=== PATIENT | female | born 1995 | race Caucasian/White ===

== ENCOUNTER 2016-09-05 00:53 | Emergency (ER) | payer BC ==
[~2016-09-05] VITALS: Ht 154.9 cm; Wt 63.5 kg
[~2016-09-05 00:53] MED LIST: AMOX500C2 PO
[2016-09-05 02:00] VITALS: BP_SYST 132
--- NOTE | 2016-09-05 02:58 | NUR ---
Patient to ER bed 5 to gown for evaluation. Side rails up. Report given to WEI Garcia
--- NOTE | 2016-09-05 03:00 | NUR ---
Patient arrived to ED with c/o QUEEN x 3 days. Patient a/o x 4. Reports tension QUEEN localized to right side of skull. Patient denies N/V. Denies trauma. Reports Hx of migraines. Patient took ibuprofen at home for pain. Boyfriend at bedside. Will continue to monitor.
--- NOTE | 2016-09-05 03:10 | NUR ---
ED MD Santana at bedside for medical evaluation.
[2016-09-05 03:30] VITALS: BP_SYST 129
--- NOTE | 2016-09-05 03:30 | NUR ---
Patient given written and verbal discharge instructions and verbalizes understanding. ER MD discussed with patient the results and treatment provided. Patient in stable condition. ID arm band removed. Rx of Fioricet given. Patient educated on pain management and to follow up with PMD. Pain Scale 2/10 tolerable for patient. Opportunity for questions provided and answered.
== END 2016-09-05 03:30 | disposition home or self-care (01) ==
LOC: SED 00:53
DX: R51 Headache (principal); Z88.1 Allergy status to other antibiotic agents
CPT/HCPCS: 99283

== ENCOUNTER 2017-03-18 22:44 | Emergency (ER) | payer BC ==
[~2017-03-18] VITALS: Ht 154.9 cm; Wt 65.8 kg
[2017-03-18 23:02] VITALS: BP_SYST 134
--- NOTE | 2017-03-18 23:25 | NUR ---
ER MD Adames at bedside for medical evaluation.
--- NOTE | 2017-03-18 23:25 | NUR ---
Patient to ER bed 6 to gown for evaluation. Side rails up.
[2017-03-18] MEDS ORDERED: PROCHLORPERAZINE EDISYLATE 10 MG/2 ML VIAL IVP ONE (23:30)
[2017-03-18] MEDS ORDERED: DIPHENHYDRAMINE INJ 50 MG/ML VIAL IVP ONE (23:30)
--- NOTE | 2017-03-18 23:30 | NUR ---
Patient AOx4, ambulatory, presents to ER with complaint of migraine headache 11/19. Patient states the migraine was worse today than other times. Mother states that the patient does not take any prescribed medication for migraine. Will continue to monitor.
--- NOTE | 2017-03-18 23:40 | NUR ---
# 22 gauge angiocath placed to LAC. Use of asceptic technique. Opsite placed over site. Blood return noted. Flushed with 10 cc of normal saline. No evidence of infiltration noted. Patient tolerated well.
--- NOTE | 2017-03-18 23:58 | NUR ---
Dr. Adames gave verbal order for Ativan 1mg.
--- NOTE | 2017-03-19 00:01 | NUR ---
Lorezapam not administered. Patient's mother refused medication.
[2017-03-19] MEDS ORDERED: LORazepam 2 MG/ML VIAL (FOR ER USE) ONE (00:02)
[2017-03-19 01:22] VITALS: BP_SYST 128
--- NOTE | 2017-03-19 01:22 | NUR ---
Patient given written and verbal discharge instructions and verbalizes understanding. ER MD discussed with patient the results and treatment provided. Patient in stable condition. ID arm band removed. IV catheter removed intact and dressing applied, no active bleeding. Rx of Tylenol given. Patient educated on pain management and to follow up with PMD. Pain Scale 0/10. Opportunity for questions provided and answered.
== END 2017-03-19 01:22 | disposition home or self-care (01) ==
LOC: SED 22:44
DX: G43.909 Migraine, unspecified, not intractable, without status migrainosus (principal)
CPT/HCPCS: 96374; 96375; 99284; J0780; J1200; J2060

== ENCOUNTER 2018-09-03 03:20 | Emergency (ER) | payer BC, MEDICAID ==
[~2018-09-03] VITALS: Ht 154.9 cm; Wt 63.5 kg
[2018-09-03 03:40] VITALS: BP_SYST 140
--- NOTE | 2018-09-03 03:40 | NUR ---
Patient to ER bed 7 to gown for evaluation. Side rails up.
--- NOTE | 2018-09-03 04:30 | NUR ---
Patient left without being seen.
== END 2018-09-03 04:30 | disposition left against medical advice (07) ==
LOC: SED 03:20
DX: G43.909 Migraine, unspecified, not intractable, without status migrainosus (principal); Z53.21 Procedure and treatment not carried out due to patient leaving prior to being seen by health care provider

== ENCOUNTER 2022-06-10 12:17 | Emergency (ER) | payer BC, MEDICAID ==
[~2022-06-10] VITALS: Ht 154.9 cm; Wt 65.8 kg
[2022-06-10 12:20] VITALS: BP_SYST 143
[2022-06-10 13:04] LABS: BASOPHILS % (AUTO) 0.7 % (0.0-2.0); EOSINOPHILS # (AUTO) 0.4 K/uL (0.0-0.4); EOSINOPHILS % (AUTO) 5.3 % (0.0-4.0); HEMATOCRIT 39.4 % (36-48); HEMOGLOBIN 13.2 g/dL (12.0-16.0); LYMPHOCYTES # (AUTO) 1.9 K/uL (1.0-5.5); LYMPHOCYTES % (AUTO) 28.6 % (20.5-51.5); MEAN CORPUSCULAR HEMOGLOBIN 29 pg (27-31); MEAN CORPUSCULAR HGB CONC 34 % (32-36); MEAN CORPUSCULAR VOLUME 86 fL (79.0-98.0); MONOCYTES # (AUTO) 0.4 K/uL (0.0-1.0); MONOCYTES % (AUTO) 6.6 % (1.7-9.3); NEUTROPHILS # (AUTO) 3.9 K/uL (1.8-7.7); NEUTROPHILS % (AUTO) 58.8 % (40.0-70.0); PLATELET COUNT (AUTO) 294 K/uL (130-430); RED BLOOD CELL COUNT(AUTO) 4.57 MIL/uL (4.2-6.2); RED CELL DISTRIBUTION WIDTH 12.9 % (9.0-15.0); WHITE BLOOD COUNT (AUTO) 6.7 K/uL (4.8-10.8)
[2022-06-10 13:14] LABS: ERYTHROCYTE SEDIMENTATION RATE 4 MM/HR (0-20)
[2022-06-10 13:21] LABS: CALCIUM 8.5 mg/dL (8.4-11.0); CREATININE 0.92 mg/dL (0.55-1.30); INR 0.9 (0.8-1.2); PROTHROMBIN TIME 9.8 SECS (9.5-12.5)
[2022-06-10 13:25] LABS: ALBUMIN 3.9 g/dL (3.4-4.8); C-REACTIVE PROTEIN QUANT 2.2 mg/dL (0-0.5); TOTAL BILIRUBIN 0.4 mg/dL (0.0-1.0)
[2022-06-10] MEDS ORDERED: DIPH25CA83 PO (13:51)
[2022-06-10] MEDS ORDERED: HYDC2.5% TP (13:51)
--- NOTE | 2022-06-10 13:57 | NUR ---
Patient given written and verbal discharge instructions and verbalizes understanding. ER MD discussed with patient the results and treatment provided. Patient in stable condition. Rx of given. Patient educated on pain management and to follow up with PMD. Pain Scale [0]. Opportunity for questions provided and answered. Medication side effect fact sheet provided. Addendum: 06/10/22 at 1530 by [id number] ERROR DC UNDER WEI MOODY NOT DR PONCE
== END 2022-06-10 13:58 | disposition home or self-care (01) ==
LOC: SED 12:17
DX: R58 Hemorrhage, not elsewhere classified (principal); L29.9 Pruritus, unspecified; Z88.8 Allergy status to other drugs, medicaments and biological substances; Z79.899 Other long term (current) drug therapy
CPT/HCPCS: 36415; 80053; 81025; 83605; 84703; 85025; 85610-TC; 85651-TC; 85730-TC; 86140; 99283

== ENCOUNTER 2022-06-27 03:22 | Emergency (ER) | payer BC, MEDICAID ==
[~2022-06-27] VITALS: Ht 154.9 cm; Wt 65.8 kg
[~2022-06-27 03:22] MED LIST changes: +DIPH25CA83 PO; +HYDC2.5% TP
[2022-06-27 03:37] VITALS: BP_SYST 137
--- NOTE | 2022-06-27 03:37 | NUR ---
Patient triaged and placed back to the waiting room. Vital signs updated, denied any acute distress at this time. Instructed to notify ED staff for any changes in condition or worsening of symptoms. Patient verbalized understanding.
--- NOTE | 2022-06-27 04:07 | NUR ---
Patient placed in Triage room for MD evaluation.
--- NOTE | 2022-06-27 04:08 | NUR ---
Dr. Meehan in triage room examining the patient.
[2022-06-27] MEDS ORDERED: NACL 0.9% 1,000 ML IV ONE (04:15)
[2022-06-27] MEDS ORDERED: KETOROLAC TROMETHAMINE 30 MG VIAL IVP ONE (04:15)
[2022-06-27] MEDS ORDERED: METOCLOPRAMIDE HCL 10 MG/2 ML VIAL IVP ONE (04:15)
--- NOTE | 2022-06-27 04:18 | NUR ---
Patient placed in ER Bed 8 for evaluation. Bed in lowest position with siderails up. Report given to Alisa CARVAJAL for continuity of care. Instructed to notify ED staff for any changes in condition or worsening of symptoms. Patient verbalized understanding.
--- NOTE | 2022-06-27 04:45 | NUR ---
# 20 gauge angiocath placed to RAC. Use of asceptic technique. Opsite placed over site. Blood return noted. Blood for lab drawn from site. Flushed with 10 cc of normal saline. No evidence of infiltration noted. Patient tolerated well. BOLUS STARTED, TEST NEGATIVE
[2022-06-27] MEDS ORDERED: METO-290 PO (05:19)
[2022-06-27 06:17] VITALS: BP_SYST 122
--- NOTE | 2022-06-27 06:22 | NUR ---
Patient given written and verbal discharge instructions and verbalizes understanding. ER MD discussed with patient the results and treatment provided. Patient in stable condition. ID arm band removed. IV catheter removed intact and dressing applied, no active bleeding. Rx of REGLAN given. Patient educated on MIGRAINE HEADACHE and to follow up with PMD. Pain Scale . Opportunity for questions provided and answered. Medication side effect fact sheet provided.
== END 2022-06-27 06:22 | disposition home or self-care (01) ==
LOC: SED 03:22
DX: G43.909 Migraine, unspecified, not intractable, without status migrainosus (principal); H57.12 Ocular pain, left eye; R11.2 Nausea with vomiting, unspecified; Z79.899 Other long term (current) drug therapy
CPT/HCPCS: 99284; 96374; 96361; 96375; J1885; J2765; J7030